=== PATIENT | male | born 1985 | race Caucasian/White ===

== ENCOUNTER → 2017-01-06 | Outpatient (CLI) | payer OTHER | LOC: COL.RAD 08:40 | DX: K21.9 Gastro-esophageal reflux disease without esophagitis (principal); R14.0 Abdominal distension (gaseous); R14.2 Eructation | CPT/HCPCS: A9541 ==

== ENCOUNTER 2018-09-17 09:07 | Outpatient (CLI) | payer OTHER ==
[~2018-09-17] VITALS: Ht 177.8 cm; Wt 86.7 kg
[2018-09-17 09:23] VITALS: BP 159/91; PULSE 83
[2018-09-17 10:18] VITALS: BP 160/87; PULSE 57
[2018-09-17 10:25] VITALS: BP 160/87; PULSE 75
[2018-09-17 10:39] LABS: GLUCOSE,CSF 66 mg/dL (40-70); TOTAL PROTEIN,CSF 44 mg/dL (15-45)
[2018-09-17 10:46] VITALS: BP 139/88; PULSE 65
[2018-09-17 10:51] LABS: CSF APPEARANCE CLEAR; CSF COLOR COLORLESS
[2018-09-17 10:52] LABS: CSF MONONUCLEAR 100 % (70-100); CSF POLYMORPHONUCLEAR 0 % (0-6); CSF RBC 1 /mm3 (0-0)
[2018-09-17 10:55] VITALS: BP 129/83; PULSE 55
[2018-09-17 11:10] VITALS: BP 134/90; PULSE 62
--- NOTE | 2018-09-17 11:56 | NUR ---
Discharge instructions given to pt.pt verbalizes understanding.Pt escortedout by this nurse.
== END 2018-09-17 11:56 | disposition home or self-care (01) ==
LOC: COL.RAD 09:07
PROVIDERS: Psychiatry & Neurology Neurology
DX: G62.9 Polyneuropathy, unspecified (principal)